=== PATIENT | male | born 1965 | race Caucasian/White ===

== ENCOUNTER 2019-09-16 17:58 | Emergency (ER) | payer SELFPAY ==
--- NOTE | 2019-09-16 18:06 | PDOC ---
Rapid Medical Evaluation Time Seen by Provider: 09/16/19 18:00 Medical Evaluation: 09/16/19 18:01 I performed a brief in-person evaluation of this patient. Pt is a 54 y/o male who presents to the ED with complaint of dental pain x 3 days, has taken PCN x 3 days that he got from [facility]. He states his post fell out. He has a h/o arthritis, colitis, migraines. Pertinent physical exam findings: speaking in full sentences, turkish speaking I have ordered the following: none Patient to proceed to ED for further evaluation. Discharge Disposition - Diagnosis Pain, dental - Referrals - Patient Instructions - Post Discharge Activity
[2019-09-16 18:07] VITALS: BP 151/87; PULSE 100; TEMP 98.1; BMI 25.8
[2019-09-16] MEDS ORDERED: KETOROLAC TROMETHAMINE 30 MG/1 ML VIAL IM ONE (18:42)
[2019-09-16] MEDS ORDERED: KETOROLAC TROMETHAMINE 30 MG/1 ML VIAL ONE (18:44)
--- NOTE | 2019-09-16 18:47 | PDOC ---
History of Present Illness - General History Source: Patient Exam Limitations: No Limitations - History of Present Illness Initial Comments: 09/16/19 18:46 54-year-old male Angolan-speaking with history of arthritis, colitis presents complaining of right sided upper dental pain and right cheek swelling x2 days. States his post follow-up 2 weeks ago. Denies fever, chills, shortness of breath, chest pain, headache, ear pain, dental trauma or any other complaint. Attempted to follow-up with his dentist but given COVID pandemic his dental office is closed. Has taken 3 doses of amoxicillin unknown dose that he is had at home from [place] since yesterday. ROS: as above PE: GENERAL: well-appearing, NAD HEAD: NCAT EYES: Pupils equal, round and reactive to light, sclera anicteric, conjunctiva clear ENT: pharynx: no erythema, no exudate, uvula midline Dentition: Poor dentition, few caries noted, minimal erythema to right upper gum, no fluctuance or pus pocket noted NECK: supple CHEST: nontender RESP: clear, no w/r/r CARDIO: rrr, no m/g/r ABD: +BS, soft, nontender, non distended BACK: no midline spinal ttp, no CVAT EXTREMITIES: Normal range of motion, no edema NEUROLOGICAL: Normal speech, normal gait SKIN: Warm, Dry Is this a multiple visit Asthma Patient?: No <Diane Forbes - Last Filed: 09/16/19 18:54> <Eunice Orellana - Last Filed: 09/16/19 19:14> - General Chief Complaint: Pain Stated Complaint: R/SIDE FACE PAIN/SWELLING Time Seen by Provider: 09/16/19 18:00 Past History - Medical History COPD: No Other medical history: Arthritis - Psycho-Social/Smoking History Smoking History: Never smoked - Substance Abuse Hx (Audit-C & DAST Scrn) How often the patient has a drink containing alcohol: Never Score: In Men: 4 or > Positive; In Women: 3 or > Positive: 0 Screen Result (Pos requires Nsg. Audit-10AR): Negative In the last yr the pt used illegal drug/Rx for NonMed reason: No Score: Yes response is considered Positive: 0 Screen Result (Positive result requires Nsg. DAST-10): Negative <Diane Forbes - Last Filed: 09/16/19 18:54> <Eunice Orellana - Last Filed: 09/16/19 19:14> - Medical History Allergies/Adverse Reactions: Allergies Allergy/AdvReac Type Severity Reaction Status Date / Time No Known Allergies Allergy Verified 09/16/19 18:17 Home Medications: Ambulatory Orders Amoxicillin - [Amoxicillin 500mg Capsule -] 500 mg PO BID #14 capsule 09/16/19 Ibuprofen 600 mg PO Q6H #20 tablet 09/16/19 *Physical Exam - Vital Signs Last Vital Signs Temp Pulse Resp BP Pulse Ox 98.1 F 100 H 18 151/87 98 09/16/19 18:02 09/16/19 18:02 09/16/19 18:02 09/16/19 18:02 09/16/19 18:02 <Diane Forbes - Last Filed: 09/16/19 18:54> - Vital Signs Last Vital Signs Temp Pulse Resp BP Pulse Ox 98.1 F 100 H 18 151/87 98 09/16/19 18:02 09/16/19 18:02 09/16/19 18:02 09/16/19 18:02 09/16/19 18:02 <Eunice Orellana - Last Filed: 09/16/19 19:14> ED Treatment Course - Medications Given in the ED: ED Medications Discontinued Medications Generic Name Dose Route Start Last Admin Trade Name Freq PRN Reason Stop Dose Admin Ketorolac Tromethamine 30 mg 09/16/19 18:42 09/16/19 18:56 Toradol Injection - IM 09/16/19 18:43 30 mg ONCE ONE Administration <Eunice Orellana - Last Filed: 09/16/19 19:14> Medical Decision Making - Medical Decision Making 09/16/19 18:50 54-year-old male [place]olan-speaking with history of arthritis, colitis presents complaining of right sided upper dental pain and right cheek swelling x2 days. States his post follow-up 2 weeks ago. Denies fever, chills, shortness of breath, chest pain, headache, ear pain, dental trauma or any other complaint. Attempted to follow-up with his dentist but given COVID pandemic his dental office is closed. Has taken 3 doses of amoxicillin unknown dose that he is had at home from [place] since yesterday. Toradol 30 mg IM x1 dose Prescription for amoxicillin sent to pharmacy Advised patient to schedule an appointment with a dentist in the area Return to ED if you develop fever, chills, worsening facial swelling or worsening pain Alternate between acetaminophen 975 mg and ibuprofen 600 mg every 6 hours as needed for pain <Diane Forbes - Last Filed: 09/16/19 18:54> - Medical Decision Making The patient was seen and evaluated in conjunction with midlevel provider under my direct supervision, ancillary studies were reviewed. I agree with the plan as outlined with_JENI forbes. HPI, workup/dispo as outlined. VS reviewed, wnl. Vital Signs Temp Pulse Resp BP Pulse Ox 98.1 F 100 H 18 151/87 98 09/16/19 18:02 09/16/19 18:02 09/16/19 18:02 09/16/19 18:02 09/16/19 18:02 anticipate discharge, pcp followup, return precautions amoxicillin, analgesia prn. 09/16/19 19:14 <Eunice Orellana - Last Filed: 09/16/19 19:14> Discharge - Discharge Information Problems reviewed: Yes - Admission No <Diane Forbes - Last Filed: 09/16/19 18:54> - Discharge Information Problems reviewed: Yes <Eunice Orellana - Last Filed: 09/16/19 19:14> - Discharge Information Clinical Impression/Diagnosis: Pain, dental Condition: Stable Disposition: HOME - Additional Discharge Information Prescriptions: Amoxicillin - [Amoxicillin 500mg Capsule -] 500 mg PO BID #14 capsule Ibuprofen 600 mg PO Q6H #20 tablet - Patient Discharge Instructions Additional Instructions: Alternate between acetaminophen 975 mg and ibuprofen 600 mg every 6 hours as needed for pain Take amoxicillin 500 mg 1 tablet twice a day for 7 days Follow-up with dental this week If you develop worsening pain, fever, facial swelling or any concerns return to ED
== END 2019-09-16 19:15 | disposition home or self-care (01) ==
LOC: JER 17:58
PROC: 3E0233Z Introduction of Anti-inflammatory into Muscle, Percutaneous Approach (ICD-10-PCS; principal; 2019-09-16)
DX: K08.89 Other specified disorders of teeth and supporting structures (principal)
CPT/HCPCS: 99284-25